=== PATIENT | female | born 1970 | race Caucasian/White ===

== ENCOUNTER 2024-07-20 08:00 | Outpatient (CLI) | payer BC | END 2024-07-20 23:00 | disposition home or self-care (01) | LOC: MRI 08:00 | PROVIDERS: ATTEND Family Medicine Sports Medicine | DX: M47.814 Spondylosis without myelopathy or radiculopathy, thoracic region (principal); M48.04 Spinal stenosis, thoracic region; M54.6 Pain in thoracic spine; M77.9 Enthesopathy, unspecified | CPT/HCPCS: 72146 ==

== ENCOUNTER 2024-09-25 14:30 | Outpatient (CLI) | payer BC | END 2024-09-25 23:59 | disposition home or self-care (01) | LOC: MRI02 14:30 | PROVIDERS: ATTEND Family Medicine Sports Medicine | DX: M50.322 Other cervical disc degeneration at C5-C6 level (principal); M48.02 Spinal stenosis, cervical region; M25.78 Osteophyte, vertebrae | CPT/HCPCS: 72141 ==